=== PATIENT | male | born 1995 | race Caucasian/White ===

== ENCOUNTER 2020-09-24 10:10 | Emergency (ER) | payer MEDICAID ==
[~2020-09-24] VITALS: Ht 185.4 cm; Wt 65.3 kg
[2020-09-24 10:13] VITALS: BP 135/66
--- NOTE | 2020-09-24 10:21 | NUR ---
PATIENT WALKED BACK FROM TRIAGE WITH CRUTCHES WITH CHIEF C/O LEFT ANKLE INJURY. PATIENT STATES SATURDAY HE ROLLED HIS ANKLE "STEPPING OFF A SIDEWALK." PATIENT STATES SWELLING HAS NOT GONE DOWN SINCE SATURDAY, HE CANNOT BEAR WEIGHT ON LEFT FOOT. CMS INTACT, LEFT FOOT IS SWOLLEN AND PATIENT REPORTS 7/10 PAIN. NO SIGNS OF ACUTE DISTRESS, MOM AT BEDSIDE, CONNECTED TO VITALS MACHINE, CALL LIGHT WITHIN REACH.
--- NOTE | 2020-09-24 10:23 | NUR ---
ERMD AT BEDSIDE FOR EVALUATION.
[2020-09-24] MEDS ORDERED: DULO30CA2 PO (10:27)
[2020-09-24] MEDS ORDERED: IBUPROFEN 600 MG TABLET ONE (10:28)
[2020-09-24] MEDS ORDERED: IBUPROFEN 600 MG TABLET PO ONE (10:30)
--- NOTE | 2020-09-24 10:42 | NUR ---
PATIENT MEDICATED PER [facility], ICE PACK APPLIED TO LEFT ANKLE. CALL LIGHT WITHIN REACH, NO FURTHER NEEDS AT THIS TIME.
== END 2020-09-24 11:09 | disposition home or self-care (01) ==
LOC: ED 10:51
DX: S93.492A Sprain of other ligament of left ankle, initial encounter (principal); G89.11 Acute pain due to trauma; M79.672 Pain in left foot; X50.1XXA Overexertion from prolonged static or awkward postures, initial encounter; Y93.89 Activity, other specified; Y92.098 Other place in other non-institutional residence as the place of occurrence of the external cause; Y99.8 Other external cause status
CPT/HCPCS: 99284